=== PATIENT | female | born 1950 | race African-American/Black ===

== ENCOUNTER → 2021-04-06 | Day surgery (SDC) | payer OTHER ==
[~2021-04-06] VITALS: Ht 165.1 cm; Wt 210.0 kg
[~2021-04-06] MED LIST: ALPR0.254 PO; IV RINGERS,LACTATED 1000ML 1,000 ML IV SCH; LIDOCAINE 2% PF 5 ML VIAL. ONE; LISI1TAB20 PO; OMEP40CA45 PO; PROPOFOL 10 MG/ML (20ML) VIAL. IV ONE
[2021-04-06 07:08] VITALS: BP 150/73
[2021-04-06 08:10] VITALS: BP 121/80
--- NOTE | 2021-04-10 09:08 | PATHOLOGY ---
[facility] Accession Number: [id number] . 01 Material submitted: . duodenum - DUODENAL BIOPSY . 01 Clinician provided ICD-10: R11.2 . 01 Clinical history: . NAUSEA AND VOMITING ABD PAIN EGD R/O SPRUE . 02 Diagnosis: Duodenal biopsies: - No significant pathologic abnormalities. (JPM:jaclyn; 04/09/2021) S 04/09/2021 1751 Local . 02 Comment: Sections of the duodenal biopsy reveal multiple segments of duodenal and small intestine mucosa. Where best oriented, the mucosal villi show no sprue-like changes or significant inflammatory changes. (JPM:jaclyn; 04/09/2021) . 02 Electronically signed: . Steve Saunders MD, Pathologist NPI- [id number] . 01 Gross description: . Received in formalin labeled "Zuluaga, Radha, duodenal BX" are multiple lott-brown soft tissue fragments measuring in aggregate 2.1 x 0.5 x 0.1 cm. The specimen is submitted entirely in A1. ([facility]; 04/07/2021) [facility] 04/07/2021 1245 Local . 02 Pathologist provided ICD-10: R11.2 . 02 CPT . [id number] Specimen Comment: A courtesy copy of this report has been sent to [phone], [phone] Specimen Comment: [phone] Specimen Comment: Report sent to / DR HURST Performed at: 01 [facility] [address], [place] [id number] MD Ej Hills MD Phone: [phone] Performed at: 02 [facility] [id number] MD Steve Saunders MD Phone: [phone]
== END | disposition home or self-care (01) ==
LOC: ENDOS 06:23
PROVIDERS: ATTEND Internal Medicine Gastroenterology
DX: R10.13 Epigastric pain (principal); K31.89 Other diseases of stomach and duodenum; R11.2 Nausea with vomiting, unspecified; I10 Essential (primary) hypertension; K21.9 Gastro-esophageal reflux disease without esophagitis; G47.30 Sleep apnea, unspecified; M19.90 Unspecified osteoarthritis, unspecified site; F41.9 Anxiety disorder, unspecified; Z87.440 Personal history of urinary (tract) infections; Z79.899 Other long term (current) drug therapy; Z98.890 Other specified postprocedural states
CPT/HCPCS: 43239; J2704; 88305